=== PATIENT | male | born 1990 | race Caucasian/White ===

== ENCOUNTER 2019-07-16 06:15 | Day surgery (SDC) | payer OTHER ==
[2019-07-16] MEDS ORDERED: LIDOCAINE 2% 10 ML MDV SUBQ ONE (06:16)
[2019-07-16] MEDS ORDERED: fentaNYL 100 MCG/2 ML VIAL IVP ONE (06:16)
[2019-07-16] MEDS ORDERED: PROPOFOL 200 MG/20 ML VIAL IVP ONE (06:16)
[2019-07-16] MEDS ORDERED: MIDAZOLAM 2 MG/2 ML VIAL IVP ONE (06:16)
[2019-07-16] MEDS ORDERED: CEFAZOLIN SODIUM IN 0.9 % NACL 2 GM/100 ML BAG IV ONE (06:22)
[2019-07-16] MEDS ORDERED: LACTATED RINGERS 1,000 ML IV ONE (06:51)
[2019-07-16] MEDS ORDERED: BUPIVACAINE 0.25% PF 30 ML VIAL ONE (06:56)
--- NOTE | 2019-07-16 07:30 | ANESTHESIA ---
Pre-Anesthesia VS, & Labs - Diagnosis carpal tunnel syndrome - Procedure carpal tunnel release Vital Signs: Temp Pulse Resp BP Pulse Ox 36.4 C L 77 16 127/79 97 07/16/19 06:37 07/16/19 06:37 07/16/19 06:37 07/16/19 06:37 07/16/19 06:37 Height 5 ft 9 in Weight (kg) 92.53 kg - NPO >8 hours Home Medications and Allergies Home Medications: Ambulatory Orders No Known Home Medications 07/08/19 No Known Home Medications 07/08/19 Allergies/Adverse Reactions: Allergies Allergy/AdvReac Type Severity Reaction Status Date / Time No Known Drug Allergies Allergy Verified 07/08/19 12:00 Anes History & Medical History - Anesthetic History Anesthesia Complications: reports: No previous complications - Medical History Cardiovascular: reports: None Pulmonary: reports: None Gastrointestinal: reports: None Urinary: reports: None Musculoskeletal: reports: Other Endocrine/Autoimmune: reports: None Skin: reports: None Smoking Status: Never smoker Exam General: Alert Dental: WNL Mouth Opening: Greater than 4 Fingerbreadths Mallampati classification: II Thyromental Distance: greater than 6 cm Respiratory: Lungs clear Cardiovascular: Regular rate, Normal S1, Normal S2 Mental/Cognitive Status: Alert/Oriented X3 Plan Anesthesia Type: MAC Consent for Procedure(s) Verified and Reviewed: Yes Code Status: Attempt Resuscitation ASA classification: 2-Mild systemic disease Is this case an emergency?: No
[2019-07-16] MEDS ORDERED: ONDANSETRON 4 MG/2 ML VIAL IVP PRN (08:35)
[2019-07-16] MEDS ORDERED: oxyCODONE 5 MG TABLET PO PRN (08:35)
--- NOTE | 2019-07-16 08:41 | OPERATIVE REPORT ---
Operative Report - Other Other Information/Narrative: Date of Surgery: 16 July 2019 Pre-Op Diagnosis: Left Carpal tunnel syndrome Procedure: Left Open carpal tunnel release Postop Diagnosis: Left Carpal tunnel syndrome Primary Surgeon: Omar Diaz Secondary Surgeon: None Complications: None Tourniquet Time: Not used EBL: 5 cc Indication For Surgery: 28-year-old male with bilateral carpal tunnel syndrome confirmed with nerve conduction studies. Positive family history. He partially responded to splint use but continued to have symptoms at unacceptable level. The risks, benefits, and alternatives were discussed. Risks include pain, bleeding, infection, damage to nearby structures, numbness, pillar pain, lack of symptom relief, need for further surgery, DVT, PE, stroke, and . Written consent was obtained. The patient was met in the preoperative holding on the day of the procedure. Op erative extremity was signed. Consent was verified. They desire to proceed. 20 cc of 1% lidocaine with epinephrine were injected at the wrist and hand in the preoperative area. They were brought to the operating room and placed in the supine position. They were prepped and draped in the standard fashion. A surgical timeout was held will be confirmed the patient procedure, identity, allergies, antibiotics, images and laterality. All were in agreement we proceeded. A 3cm longitudinal incision was made in line with the ulnar border of the ring finger starting at Holland's Cardinal line distally. This was just radial to the hook of the hamate. Sharp dissection was brought down through the palmar fascia. Retractors were placed. The transverse carpal ligament was identified and a knife was used to separate it. The contents of the carpal tunnel were seen. Knife dissection was used to release the ligament as far proximal as could be visualized. Long handled Metzenbaum scissors were then used to create a pocket just superficial to the transverse carpal ligament and a retractor was placed. I then used a long handled Metzenbaum with the tips pointed ulnarly to complete the release 2 cm into the antebrachial fascia. Retractors were then moved distally and I confirmed complete release in the appearance of fat in the palm. A freer elevator was used to confirm complete release both proximally and distally. The wound was closed with 4-0 nylon in a horizontal mattress configuration. A sterile bulky dressing was applied. He was transferred to the recovery room.
[2019-07-16 09:18] VITALS: BP 116/70
== END 2019-07-16 06:16 | disposition home or self-care (01) ==
LOC: SDS 06:15
PROVIDERS: ATTEND Orthopaedic Surgery
PROC: 01N50ZZ Release Median Nerve, Open Approach (ICD-10-PCS; principal; 2019-07-16 07:30)
DX: G56.03 Carpal tunnel syndrome, bilateral upper limbs (principal); E66.01 Morbid (severe) obesity due to excess calories; Z68.30 Body mass index [BMI] 30.0-30.9, adult